=== PATIENT | male | born 1965 | race African-American/Black ===

== ENCOUNTER 2017-02-13 15:27 | Emergency (ER) | payer OTHER ==
[~2017-02-13] VITALS: Ht 172.7 cm; Wt 89.8 kg
[2017-02-13 16:59] LABS: HEMATOCRIT 38.9 % (38.0-50.0); MCH 29.3 PG (29.0-34.0); MCHC 33.9 G/DL (30.0-36.0); MCV 86.4 FL (86-99); MEAN PLAT.VOLUME 10.9 uM^3 (9.0-12.4); PLATELET COUNT 190 K/uL (156-360); RBC DIS.WIDTH-CV 11.9 % (11.8-14.6); RBC DIS.WIDTH-SD 37.6 % (39-53); WHITE BLOOD COUNT 9.7 K/uL (4.1-10.2)
[2017-02-13 17:09] LABS: CHLORIDE 102 mEq/L (99-109); SODIUM 136 mEq/L (136-147)
[2017-02-13 17:11] LABS: GLUCOSE 284 mg/dL (70-99)
[2017-02-13 17:12] LABS: ANION GAP 11 MEQ/L (2-14)
[2017-02-13 17:15] LABS: GFR ESTIMATE (CALCULATED) > 59 mL/min/
[2017-02-13 17:16] LABS: UREA NITROGEN (BUN) 7 mg/dL (9-23)
[2017-02-13 17:19] LABS: TROP-I INTERPRETATION NEGATIVE; TROPONIN-I 0.02 ng/mL (0.0-0.30)
[2017-02-13 19:47] VITALS: BP 154/84
== END 2017-02-13 19:48 | disposition left against medical advice (07) ==
LOC: EME 15:27
PROVIDERS: Emergency Medicine
DX: R07.9 Chest pain, unspecified (principal); Z53.20 Procedure and treatment not carried out because of patient's decision for unspecified reasons; F17.200 Nicotine dependence, unspecified, uncomplicated
CPT/HCPCS: 71020; 80048; 84484; 85027; 93005; 99281; 99285